=== PATIENT | female | born 2005 | race Two or more races ===

== ENCOUNTER 2024-02-03 21:40 | Emergency (ER) | payer SELFPAY ==
[2024-02-03 21:43] VITALS: BMI 23.3
--- NOTE | 2024-02-03 23:26 | PC.NURSE ---
CALLED PT, NO ANSWER AT THIS TIME.
--- NOTE | 2024-02-03 23:58 | PC.NURSE ---
CALLED STAFF IN THE LOBBY AND OUTSIDE, NO ANSWER RECEIVED FROM PATIENT.
--- NOTE | 2024-02-04 00:26 | PC.NURSE ---
CALLED PATIENT IN LOBBY AND OUTSIDE, NO ANSWER RECEIVED FROM PATIENT.
== END 2024-02-04 00:27 | disposition left against medical advice (07) ==
LOC: SERX 02-04 00:34
PROVIDERS: Emergency Provider Emergency Medicine
DX: Z53.21 Procedure and treatment not carried out due to patient leaving prior to being seen by health care provider (principal)